=== PATIENT | female | born 1965 | race Caucasian/White ===

== ENCOUNTER 2020-07-01 15:36 | Emergency (ER) | payer MEDICAID, MEDICARE ==
[2020-07-01] MEDS ORDERED: cefTRIAXone/NS 1 GM/50 ML 1 GM/50 ML BAG IV ONE (17:40)
[2020-07-01] MEDS ORDERED: ONDANSETRON 4 MG/2 ML INJ IV ONE (17:40)
[2020-07-01] MEDS ORDERED: MORPHINE 4 MG/1 ML INJ IV ONE (17:40)
[2020-07-01] MEDS ORDERED: SODIUM CHLORIDE 0.9% 1000 ML 1,000 ML IV ONE (17:40)
--- NOTE | 2020-07-01 18:04 | XRay Report ---
Left hand 3 views INDICATION: Left finger pain and swelling IMPRESSION: There is prominent swelling in the soft tissues of the left index finger. No underlying o sseous destruction fracture or dislocation is identified. Signer Name: Anthony Carrera MD Signed: 07/01/2020 6:00 PM Workstation Name: [id number]
[2020-07-01 18:11] LABS: Basophils % (Auto) 0.4 % (0.0-1.8); Eosinophils # (Auto) 0.1 K/mm3 (0.0-0.4); Eosinophils % (Auto) 1.9 % (0.0-4.3); Hematocrit 33.9 % (30.3-42.9); Hemoglobin 11.6 gm/dl (10.1-14.3); Lymphocytes # (Auto) 1.3 K/mm3 (1.2-5.4); Lymphocytes % (Auto) 18.4 % (13.4-35.0); Mean Corpuscular HGB Conc 34 % (30-34); Mean Corpuscular Volume 93 fl (79-97); Monocytes # (Auto) 0.5 K/mm3 (0.0-0.8); Monocytes % (Auto) 7.6 % (0.0-7.3); Platelet Count 213 K/mm3 (140-440); Red Blood Count 3.66 M/mm3 (3.65-5.03); Red Cell Distribution Width 13.5 % (13.2-15.2)
--- NOTE | 2020-07-01 18:18 | Emergency Department Report ---
ED General Adult HPI - General Chief complaint: Extremity Injury, Upper Stated complaint: SWOLLEN HAND Time Seen by Provider: 07/01/20 17:26 Source: patient Mode of arrival: Ambulatory Limitations: No Limitations - History of Present Illness Initial comments: Patient is a 55-year-old female presents emergency room with complaints of left index finger pain and swelling that began a week ago. She states that yesterday it got significantly worse and began having increasing swelling, increasing redness and began extending into the palm. Patient states that 2 days ago she was seen at urgent care and placed on antibiotic but she is not sure what it is, she states that she received a call today to change the antibiotic to clindamycin. She states that she presents to the emergency room because now she is unable to flex and that it is significantly worsening. She denies any fever, drainage, vomiting, chills, numbness, weakness. she denies any fall or injury. She states she has a history of CKD and diabetes and takes metformin and glipizide. She states that she is already had to have a toe amputation secondary to infection. She denies any allergies to medications. Severity scale (0 -10): 10 - Related Data Previous Rx's Medication Instructions Recorded Last Taken Type Aspirin [Aspirin BABY CHEW TAB] 81 mg PO QDAY #30 tab.chew 02/02/16 Unknown Rx Metoprolol [Lopressor TAB] 25 mg PO BID #60 tablet 02/02/16 Unknown Rx Metoprolol [Lopressor TAB] 50 mg PO BID #60 tablet 02/02/16 Unknown Rx Potassium 20 mg PO QDAY #30 tablet 02/02/16 Unknown Rx Apixaban [Eliquis] 5 mg PO Q12HR #60 tablet 02/06/16 Unknown Rx AtorvaSTATin [Lipitor] 40 mg PO QDAY #30 tablet 02/06/16 Unknown Rx AtorvaSTATin [Lipitor] 40 mg PO QHS #30 tablet 02/06/16 Unknown Rx Digoxin [Lanoxin] 0.125 mg PO DAILY@1700 #30 tablet 02/06/16 Unknown Rx Potassium Chloride [K-Dur] 20 meq PO QDAY #30 tablet 02/06/16 Unknown Rx Sitagliptin Phos/Metformin HCl 1 each PO QDAY #30 tablet 02/06/16 Unknown Rx [Janumet 50-1,000 mg] Torsemide [Demadex] 40 mg PO DAILY #30 tablet 02/06/16 Unknown Rx lisinopriL [Zestril TAB] 10 mg PO QDAY #30 tablet 02/06/16 Unknown Rx metOLazone [Zaroxolyn] 2.5 mg PO Q72H #20 tablet 02/06/16 Unknown Rx Allergies Allergy/AdvReac Type Severity Reaction Status Date / Time No Known Allergies Allergy Unverified 01/31/16 17:11 ED Review of Systems ROS: Stated complaint: SWOLLEN HAND Other details as noted in HPI Comment: All other systems reviewed and negative ED Past Medical Hx - Past Medical History Hx Hypertension: Yes Hx Heart Attack/AMI: Yes (2007; CABG 2011) Hx Congestive Heart Failure: Yes Hx Diabetes: Yes Hx Asthma: No Hx COPD: No - Surgical History Hx Open Heart Surgery: Yes Hx Pacemaker: Yes Hx Internal Defibrillator: Yes Additional Surgical History: defibrillator, right foot - Social History Smoking Status: Never Smoker Substance Use Type: None - Medications Home Medications: Home Medications Medication Instructions Recorded Confirmed Last Taken Type Aspirin [Aspirin BABY CHEW TAB] 81 mg PO QDAY #30 tab.chew 02/02/16 Unknown Rx Metoprolol [Lopressor TAB] 25 mg PO BID #60 tablet 02/02/16 Unknown Rx Metoprolol [Lopressor TAB] 50 mg PO BID #60 tablet 02/02/16 Unknown Rx Potassium 20 mg PO QDAY #30 tablet 02/02/16 Unknown Rx Apixaban [Eliquis] 5 mg PO Q12HR #60 tablet 02/06/16 Unknown Rx AtorvaSTATin [Lipitor] 40 mg PO QDAY #30 tablet 02/06/16 Unknown Rx AtorvaSTATin [Lipitor] 40 mg PO QHS #30 tablet 02/06/16 Unknown Rx Digoxin [Lanoxin] 0.125 mg PO DAILY@1700 #30 tablet 02/06/16 Unknown Rx Potassium Chloride [K-Dur] 20 meq PO QDAY #30 tablet 02/06/16 Unknown Rx Sitagliptin Phos/Metformin HCl 1 each PO QDAY #30 tablet 02/06/16 Unknown Rx [Janumet 50-1,000 mg] Torsemide [Demadex] 40 mg PO DAILY #30 tablet 02/06/16 Unknown Rx lisinopriL [Zestril TAB] 10 mg PO QDAY #30 tablet 02/06/16 Unknown Rx metOLazone [Zaroxolyn] 2.5 mg PO Q72H #20 tablet 02/06/16 Unknown Rx ED Physical Exam - General Limitations: No Limitations General appearance: alert, in no apparent distress - Head Head exam: Present: atraumatic, normocephalic - Eye Eye exam: Present: normal appearance - ENT ENT exam: Present: mucous membranes moist - Extremities Exam Extremities exam: Present: other (fusiform edema of the left index finger extending into the palm/index MCP, erythema of the finger, pt is unable to flex the finger, neurovascularly intact) - Neurological Exam Neurological exam: Present: alert, oriented X3 - Psychiatric Psychiatric exam: Present: normal affect, normal mood - Skin Skin exam: Present: warm, dry ED Course Vital Signs 07/01/20 07/01/20 15:54 21:08 Temperature 99.3 F 98.6 F Pulse Rate 84 59 L Respiratory 18 18 Rate Blood Pressure 136/89 121/53 [Left] O2 Sat by Pulse 98 100 Oximetry - Consultations Consultation #1: 07/01/20 18:22 Asked receptionist secretary to page [facility] transfer line 07/01/20 18:41 Spoke to Brandi at the [facility] transfer line she will call back with a hand javed lópez 07/01/20 18:[address] Lara, hand surgeon regarding patient presentation and results, advi sed to transfer patient to [facility] ED and they will consult patient in the emergency department, I advised that I already gave ceftriaxone and vancomycin, no further recommendations at this time 07/01/20 19:00 Spoke with Brandi at the [facility] transfer line she states that Dr. Felice Mon, ER attending accepts patient at [facility], ED to ED transfer, we will arrange transport, he will accept and resume care of patient ED Medical Decision Making - Lab Data Result diagrams: 07/01/20 18:00 07/01/20 18:00 Lab Results 07/01/20 07/01/20 07/01/20 Range/Units 17:59 18:00 18:00 WBC 6.9 (4.5-11.0) K/mm3 RBC 3.66 (3.65-5.03) M/mm3 Hgb 11.6 (10.1-14.3) gm/dl Hct 33.9 (30.3-42.9) % MCV 93 (79-97) fl MCH 32 (28-32) pg MCHC 34 (30-34) % RDW 13.5 (13.2-15.2) % Plt Count 213 (140-440) K/mm3 Lymph % (Auto) 18.4 (13.4-35.0) % Pettis % (Auto) 7.6 H (0.0-7.3) % Eos % (Auto) 1.9 (0.0-4.3) % Baso % (Auto) 0.4 (0.0-1.8) % Lymph # 1.3 (1.2-5.4) K/mm3 Pettis # 0.5 (0.0-0.8) K/mm3 Eos # 0.1 (0.0-0.4) K/mm3 Baso # 0.0 (0.0-0.1) K/mm3 Seg Neutrophils % 71.7 H (40.0-70.0) % Seg Neutrophils # 5.0 (1.8-7.7) K/mm3 Sodium 143 (137-145) mmol/L Potassium 4.5 (3.6-5.0) mmol/L Chloride 97.4 L (98-107) mmol/L Carbon Dioxide 27 (22-30) mmol/L Anion Gap 23 mmol/L BUN 37 H (7-17) mg/dL Creatinine 1.4 H (0.6-1.2) mg/dL Estimated GFR 39 ml/min BUN/Creatinine Ratio 26 % Glucose 190 H (65-100) mg/dL Lactic Acid 3.60 H* (0.7-2.0) mmol/L Calcium 10.2 (8.4-10.2) mg/dL Total Bilirubin 0.50 (0.1-1.2) mg/dL AST 17 (5-40) units/L ALT 12 (7-56) units/L Alkaline Phosphatase 123 (35-129) units/L Total Protein 8.0 (6.3-8.2) g/dL Albumin 5.0 (3.9-5) g/dL Albumin/Globulin Ratio 1.7 % - Radiology Data Radiology results: report reviewed Left hand 3 views INDICATION: Left finger pain and swelling IMPRESSION: There is prominent swelling in the soft tissues of the left index finger. No underlying osseous destruction fracture or dislocation is identified. Signer Name: Anthony Carrera MD Signed: 07/01/2020 6:00 PM Workstation Name: [id number] Transcribed By: Dictated By: Anthony Carrera MD Electronically Authenticated By: Anthony Carrera MD Signed Date/Time: 07/01/201799 DD/ 58 TD/TT: - Medical Decision Making Patient is a 55-year-old female presents emergency room with complaints of left index finger pain and swelling that began a week ago. She states that yesterday it got significantly worse and began having increasing swelling, increasing redness and began extending into the palm. Patient states that 2 days ago she was seen at urgent care and placed on antibiotic but she is not sure what it is, she states that she received a call today to change the antibiotic to clindamycin. She states that she presents to the emergency room because now she is unable to flex and that it is significantly worsening. She denies any feve r, drainage, vomiting, chills, numbness, weakness. she denies any fall or injury. She states she has a history of CKD and diabetes and takes metformin and glipizide. She states that she is already had to have a toe amputation secondary to infection. She denies any allergies to medications. vitals are normal. on exam: fusiform edema of the left index finger extending into the palm/index MCP, erythema of the finger, pt is unable to flex the finger, neurovascularly intact. XR left hand: There is prominent swelling in the soft tissues of the left index finger. No underlying osseous destruction fracture or dislocation is identified. labs significant for elevated lactic acid, WBC normal, stable chronic CKD. ordered for pt to have vancomycin, ceftriaxone, and pain medication. examination appears most consistent with infectious tenosynovitis, pt states she has already been taking oral abx and symptoms are worsening, this appears to be a hand emergency and needs a hand surgeon. discussed case with Dr. Ghosh who advised to transfer to a facility with a hand surgeon. We have no orthopedic carbon paper interleafer at our facility today. Spoke to Dr. Lara, hand surgeon regarding patient presentation and results, advised to transfer patient to [facility] ED and they will consult patient in the emergency d epartment, I advised that I already gave ceftriaxone and vancomycin, no further recommendations at this time. Spoke with Brandi at the [facility] transfer line she states that Dr. Felice Mon, ER attending accepts patient at [facility], ED to ED transfer, we will arrange transport, he will accept and resume care of patient Critical care attestation.: If time is entered above; I have spent that time in minutes in the direct care of this critically ill patient, excluding procedure time. ED Disposition Clinical Impression: Tenosynovitis of finger DM type 2 (diabetes mellitus, type 2) Qualifiers: Diabetes mellitus nursing home insulin use: without long term care social worker use Diabetes mellitus complication status: with hyperglycemia Qualified Code(s): E11.65 - Type 2 diabetes mellitus with hyperglycemia Disposition: DC/TX-70 ANOTHER TYPE HLTHCARE Is pt being admited?: No Does the pt Need Aspirin: No Condition: Stable Instructions: Diabetes Mellitus Type 2 in Adults (ED), Tenosynovitis (ED) Referrals: ROLY ALCAZAR MD [Staff Physician] - 3-5 Days Time of Disposition: 16:09 Print Language: ERITREAN
[2020-07-01 18:33] LABS: Calcium 10.2 mg/dL (8.4-10.2)
[2020-07-01 21:09] VITALS: BP 121/53
== END 2020-07-02 01:10 | disposition other institution (70) ==
LOC: ED 15:36
DX: E11.65 Type 2 diabetes mellitus with hyperglycemia (principal); M65.842 Other synovitis and tenosynovitis, left hand; I11.0 Hypertensive heart disease with heart failure; I50.9 Heart failure, unspecified; E11.9 Type 2 diabetes mellitus without complications; I25.2 Old myocardial infarction; Z98.890 Other specified postprocedural states
CPT/HCPCS: 36415; 73130; 80053; 82140; 85025; 96365; 99285; J0696; J7030

== ENCOUNTER 2022-03-18 02:03 | Emergency (ER) | payer MEDICARE ==
[2022-03-18 02:47] VITALS: BP 102/55
[2022-03-18 04:18] LABS: Albumin 4.5 g/dL (3.9-5); Calcium 9.6 mg/dL (8.4-10.2)
[2022-03-18 04:32] LABS: Hematocrit 36.5 % (30.3-42.9); Hemoglobin 11.6 gm/dl (10.1-14.3); Mean Corpuscular HGB Conc 32 % (30-34); Mean Corpuscular Volume 94 fl (79-97); Platelet Count 177 K/mm3 (140-440); Red Blood Count 3.88 M/mm3 (3.65-5.03); Red Cell Distribution Width 14.5 % (13.2-15.2)
[2022-03-18 04:51] LABS: Bilirubin,Urine NEG (Negative); Blood,Urine SM (Negative); Color,Urine Yellow (Yellow); Protein,Urine <15 mg/dL mg/dL (Negative); Urobilinogen,Urine < 2.0 mg/dL (<2.0)
[2022-03-18] MEDS ORDERED: SODIUM CHLORIDE 0.9% 1000 ML 1,000 ML IV ONE (06:01)
[2022-03-18] MEDS ORDERED: INSULIN REGULAR, HUMAN 100 UNITS/1 ML IV ONE (06:01)
--- NOTE | 2022-03-18 08:09 | Emergency Department Report ---
ED N/V/D HPI - General Chief complaint: Abdominal Pain Stated complaint: DIARRHEA/VOMITING Time Seen by Provider: 03/18/22 05:28 Source: patient Mode of arrival: Ambulatory Limitations: No Limitations - History of Present Illness Initial comments: 56-year-old black female with a past medical history of diabetes and renal insufficiency presents to the emergency department for evaluation of vomiting and diarrhea x2 since 10:00 last night. She states that last week her primary care provider adjusted her metformin and Jardiance and since then she has been having diarrhea daily. She states that has been very difficult to take the medication. She denies abdominal pain, fever, dizziness, weakness, and vaginal discharge. MD complaint: nausea, vomiting, diarrhea -: Gradual, hour(s) (10) Description of Diarrhea: water Associated Abdominal Pain: No Context: other (Recent change in medication) Associated Symptoms: denies other symptoms, nausea/vomiting. denies: myalgias, chest pain, cough, diaphoresis, fever/chills, headaches, malaise, rash, dysuria, shortness of breath, syncope, weakness - Related Data Previous Rx's Medication Instructions Recorded Last Taken Type Aspirin [Aspirin BABY CHEW TAB] 81 mg PO QDAY #30 tab.chew 02/02/16 Unknown Rx Metoprolol [Lopressor TAB] 25 mg PO BID #60 tablet 02/02/16 Unknown Rx Metoprolol [Lopressor TAB] 50 mg PO BID #60 tablet 02/02/16 Unknown Rx Potassium 20 mg PO QDAY #30 tablet 02/02/16 Unknown Rx Apixaban [Eliquis] 5 mg PO Q12HR #60 tablet 02/06/16 Unknown Rx AtorvaSTATin [Lipitor] 40 mg PO QDAY #30 tablet 02/06/16 Unknown Rx AtorvaSTATin [Lipitor] 40 mg PO QHS #30 tablet 02/06/16 Unknown Rx Digoxin [Lanoxin] 0.125 mg PO DAILY@1700 #30 tablet 02/06/16 Unknown Rx Potassium Chloride [K-Dur] 20 meq PO QDAY #30 tablet 02/06/16 Unknown Rx Sitagliptin Phos/Metformin HCl 1 each PO QDAY #30 tablet 02/06/16 Unknown Rx [Janumet 50-1,000 mg] Torsemide [Demadex] 40 mg PO DAILY #30 tablet 02/06/16 Unknown Rx lisinopriL [Zestril TAB] 10 mg PO QDAY #30 tablet 02/06/16 Unknown Rx metOLazone [Zaroxolyn] 2.5 mg PO Q72H #20 tablet 02/06/16 Unknown Rx Ondansetron [Zofran Odt] 4 mg PO Q8HR PRN #12 tab.rapdis 03/18/22 Unknown Rx Allergies Allergy/AdvReac Type Severity Reaction Status Date / Time No Known Allergies Allergy Unverified 01/31/16 17:11 ED Review of Systems ROS: Stated complaint: DIARRHEA/VOMITING Other details as noted in HPI Comment: All other systems reviewed and negative Constitutional: denies: chills, fever Respiratory: denies: shortness of breath, SOB with exertion, SOB at rest Cardiovascular: denies: chest pain, palpitations Gastrointestinal: nausea, vomiting, diarrhea. denies: abdominal pain, hematemesis, melena, hematochezia Genitourinary: denies: urgency, dysuria, frequency, hematuria, discharge, abnormal menses Musculoskeletal: denies: back pain Skin: denies: rash, lesions Neurological: denies: headache, weakness, numbness Psychiatric: denies: anxiety, depression ED Past Medical Hx - Past Medical History Hx Hypertension: Yes Hx Heart Attack/AMI: Yes (2007; CABG 2011) Hx Congestive Heart Failure: Yes Hx Diabetes: Yes Hx Asthma: No Hx COPD: No - Surgical History Hx Open Heart Surgery: Yes Hx Pacemaker: Yes Hx Internal Defibrillator: Yes Additional Surgical History: defibrillator, right foot - Social History Smoking Status: Never Smoker Substance Use Type: None - Medications Home Medications: Home Medications Medication Instructions Recorded Confirmed Last Taken Type Aspirin [Aspirin BABY CHEW TAB] 81 mg PO QDAY #30 tab.chew 02/02/16 Unknown Rx Metoprolol [Lopressor TAB] 25 mg PO BID #60 tablet 02/02/16 Unknown Rx Metoprolol [Lopressor TAB] 50 mg PO BID #60 tablet 02/02/16 Unknown Rx Potassium 20 mg PO QDAY #30 tablet 02/02/16 Unknown Rx Apixaban [Eliquis] 5 mg PO Q12HR #60 tablet 02/06/16 Unknown Rx AtorvaSTATin [Lipitor] 40 mg PO QDAY #30 tablet 02/06/16 Unknown Rx AtorvaSTATin [Lipitor] 40 mg PO QHS #30 tablet 02/06/16 Unknown Rx Digoxin [Lanoxin] 0.125 mg PO DAILY@1700 #30 tablet 02/06/16 Unknown Rx Potassium Chloride [K-Dur] 20 meq PO QDAY #30 tablet 02/06/16 Unknown Rx Sitagliptin Phos/Metformin HCl 1 each PO QDAY #30 tablet 02/06/16 Unknown Rx [Janumet 50-1,000 mg] Torsemide [Demadex] 40 mg PO DAILY #30 tablet 02/06/16 Unknown Rx lisinopriL [Zestril TAB] 10 mg PO QDAY #30 tablet 02/06/16 Unknown Rx metOLazone [Zaroxolyn] 2.5 mg PO Q72H #20 tablet 02/06/16 Unknown Rx Ondansetron [Zofran Odt] 4 mg PO Q8HR PRN #12 tab.rapdis 03/18/22 Unknown Rx ED Physical Exam - General Limitations: No Limitations General appearance: alert, in no apparent distress - Head Head exam: Present: atraumatic, normocephalic - Eye Eye exam: Present: normal appearance. Absent: conjunctival injection - Neck Neck exam: Present: normal inspection. Absent: tenderness, lymphadenopathy - Respiratory Respiratory exam: Present: normal lung sounds bilaterally. Absent: respiratory distress, wheezes, rales, rhonchi, stridor, chest wall tenderness - Cardiovascular Cardiovascular Exam: Present: regular rate, normal heart sounds - GI/Abdominal GI/Abdominal exam: Present: soft, normal bowel sounds. Absent: distended, tenderness, guarding, rebound, rigid - Extremities Exam Extremities exam: Present: normal inspection, normal capillary refill. Absent: tenderness, pedal edema, joint swelling, calf tenderness - Back Exam Back exam: Present: normal inspection. Absent: CVA tenderness (R), CVA tenderness (L) - Neurological Exam Neurological exam: Present: alert, oriented X3, normal gait - Psychiatric Psychiatric exam: Present: normal affect, normal mood - Skin Skin exam: Present: warm, dry, intact, normal color ED Course Vital Signs 03/18/22 02:12 Temperature 99.6 F Pulse Rate 100 H Respiratory 18 Rate Blood Pressure 102/55 O2 Sat by Pulse 96 Oximetry - Reevaluation(s) Reevaluation #1: 03/18/22 08:06 N/v resolved and BG now 217. ED Medical Decision Making - Lab Data Result diagrams: 03/18/22 03:01 03/18/22 03:01 - Medical Decision Making 56-year-old black female with a past medical history of diabetes and renal insufficiency presents to the emergency department for evaluation of vomiting and diarrhea x2 since 10:00 last night. She states that last week her primary care provider adjusted her metformin and Jardiance and since then she has been having diarrhea daily. She states that has been very difficult to take the medication. She denies abdominal pain, fever, dizziness, weakness, and vaginal discharge. No gross abnormalities noted on assessment and no active nausea, vomiting, or di arrhea noted while in department. Patient advised that diarrhea could be secondary to change in diabetes medication or secondary to viral syndrome. She is advised to continue diabetes medication as ordered per her primary care provider and follow-up with him if symptoms persist. She was treated with normal saline and IV insulin, and her blood sugar came down from 400-200. She is advised to use Zofran as needed for nausea, and plenty of noncaffeinated fluids. Patient noted to have elevated BUN/creatinine on labs, but she has a history of renal insufficiency for which she is being followed by her primary care provider. She is advised to return to the emergency department as needed. She verbalized understanding of and agreement with plan of care. - Differential Diagnosis gastroenteritis, viral syndrome, hyperglycemia Critical care attestation.: If time is entered above; I have spent that time in minutes in the direct care of this critically ill patient, excluding procedure time. ED Disposition Clinical Impression: Nausea vomiting and diarrhea Disposition: 01 HOME / SELF CARE / HOMELESS Is pt being admited?: No Does the pt Need Aspirin: No Condition: Stable Instructions: Nausea and Vomiting, Adult, [id number], Diarrhea, Adult, [id number], Abdominal Pain (ED) Additional Instructions: Continue diabetes medications and follow up with primary care provider if diarrhea persists. Return to ED as needed. Prescriptions: Ondansetron [Zofran Odt] 4 mg PO Q8HR PRN #12 tab.rapdis PRN Reason: Nausea And Vomiting Referrals: SIDRA MARQUES MD [Primary Care Provider] - 3-5 Days Time of Disposition: 08:09
[2022-03-18 11:38] LABS: Band Neutrophils # (Manual) 0.1 K/mm3; Basophils % (Manual) 0 % (0.0-1.8); Eosinophils % (Manual) 0 % (0.0-4.3); Monocytes % (Manual) 0 % (0.0-7.3); Total Cells Counted 100
[2022-03-18 11:39] LABS: Platelet Estimate Consistent w Auto; RBC Morphology Normal
== END 2022-03-18 08:26 | disposition home or self-care (01) ==
LOC: ED 02:03
DX: R11.2 Nausea with vomiting, unspecified (principal); R19.7 Diarrhea, unspecified; I10 Essential (primary) hypertension; E11.8 Type 2 diabetes mellitus with unspecified complications
CPT/HCPCS: 36415; 80053; 81001; 82805; 82962; 84703; 85007; 85025; 96361; 96374; 99283; J7030; Q0162; Q9967; J1815